=== PATIENT | male | born 1990 | race Caucasian/White ===

== ENCOUNTER 2017-03-10 19:56 | Emergency (ER) | payer BC | END 2017-03-10 21:08 | disposition home or self-care (01) | LOC: D.ER 19:56 | DX: H66.92 Otitis media, unspecified, left ear (principal); H92.02 Otalgia, left ear; F17.200 Nicotine dependence, unspecified, uncomplicated ==

== ENCOUNTER 2017-03-16 13:16 | Emergency (ER) | payer MEDICARE, MEDICAID | END 2017-03-16 15:00 | disposition home or self-care (01) | LOC: D.ER 13:16 | DX: G51.0 Bell's palsy (principal) ==